=== PATIENT | male | born 1960 | race Native Hawaiian/Other Pacific Islander ===

== ENCOUNTER 2019-10-24 08:33 | Day surgery (SDC) | payer BC ==
[~2019-10-24] VITALS: Ht 30.5 cm; Wt 0.5 kg
== END 2019-10-24 10:45 | disposition home or self-care (01) ==
LOC: OR 08:33
PROC: 3E0U33Z Introduction of Anti-inflammatory into Joints, Percutaneous Approach (ICD-10-PCS; principal; 2019-10-24)
PROC: 3E0U3BZ Introduction of Anesthetic Agent into Joints, Percutaneous Approach (ICD-10-PCS; 2019-10-24)
DX: M53.3 Sacrococcygeal disorders, not elsewhere classified (principal); M46.1 Sacroiliitis, not elsewhere classified
CPT/HCPCS: J1020; J3490

== ENCOUNTER 2020-06-04 08:55 | Day surgery (SDC) | payer BC ==
[~2020-06-04] VITALS: Ht 30.5 cm; Wt 0.5 kg
== END 2020-06-04 11:53 | disposition home or self-care (01) ==
LOC: OR 08:55
PROC: 3E0R33Z Introduction of Anti-inflammatory into Spinal Canal, Percutaneous Approach (ICD-10-PCS; principal; 2020-06-04)
PROC: 3E0R3BZ Introduction of Anesthetic Agent into Spinal Canal, Percutaneous Approach (ICD-10-PCS; 2020-06-04)
DX: M53.3 Sacrococcygeal disorders, not elsewhere classified (principal); M46.1 Sacroiliitis, not elsewhere classified
CPT/HCPCS: J1020; J3490

== ENCOUNTER 2020-10-02 13:47 | Outpatient (CLI) | payer BC | END 2020-10-02 19:52 | disposition home or self-care (01) | LOC: CT 13:47 | PROVIDERS: ATTEND Pain Medicine Interventional Pain Medicine | DX: M54.12 Radiculopathy, cervical region (principal) ==

== ENCOUNTER 2020-10-28 07:49 | Outpatient (CLI) | payer BC | END 2020-10-28 19:11 | disposition home or self-care (01) | LOC: EMG 07:49 | PROVIDERS: ATTEND Pain Medicine Interventional Pain Medicine | DX: M54.12 Radiculopathy, cervical region (principal) | CPT/HCPCS: 95860; 95910 ==